=== PATIENT | male | born 1980 | race African-American/Black ===

== ENCOUNTER 2018-04-11 23:19 | Emergency (ER) | payer SELFPAY ==
[2018-04-12] MEDS ORDERED: Dexamethasone 4 mg/ml Vial ONE ×2 (01:00)
== END 2018-04-12 01:38 | disposition home or self-care (01) ==
LOC: ERS 23:19
DX: J02.9 Acute pharyngitis, unspecified (principal)
CPT/HCPCS: 87081; 87430; 99283; J1100

== ENCOUNTER 2020-08-22 13:28 | Emergency (ER) | payer BC, SELFPAY | END 2020-08-22 14:50 | disposition home or self-care (01) | LOC: ERS 13:28 | DX: K06.8 Other specified disorders of gingiva and edentulous alveolar ridge (principal) | CPT/HCPCS: 99282 ==

== ENCOUNTER 2020-09-12 21:23 | Emergency (ER) | payer BC, SELFPAY ==
--- NOTE | 2020-09-12 22:20 | RAD ---
Exam: XR Hand Rt 3 View STANDARD HISTORY: Right hand pain which started 3 days ago. No history of injury. COMPARISON: None FINDINGS: No acute fracture, dislocation, or other acute osseous abnormality is identified. IMPRESSION: No acute osseous abnormality is identified.
== END 2020-09-12 23:52 | disposition home or self-care (01) ==
LOC: ERS 21:23
DX: G56.01 Carpal tunnel syndrome, right upper limb (principal)

== ENCOUNTER 2020-09-18 20:19 | Emergency (ER) | payer BC | END 2020-09-18 21:01 | disposition home or self-care (01) | LOC: ERS 20:19 | DX: M79.641 Pain in right hand (principal) | CPT/HCPCS: 99283 ==

== ENCOUNTER 2020-09-26 09:22 | Emergency (ER) | payer BC | END 2020-09-26 12:30 | disposition home or self-care (01) | LOC: ERS 09:22 | DX: K64.8 Other hemorrhoids (principal); F17.210 Nicotine dependence, cigarettes, uncomplicated | CPT/HCPCS: 99283 ==

== ENCOUNTER 2020-10-12 02:08 | Emergency (ER) | payer BC ==
[2020-10-12] MEDS ORDERED: Metoclopramide HCl 10 MG TAB ONE (02:37)
== END 2020-10-12 02:40 | disposition home or self-care (01) ==
LOC: ERS 02:08
DX: G43.909 Migraine, unspecified, not intractable, without status migrainosus (principal); F17.210 Nicotine dependence, cigarettes, uncomplicated
CPT/HCPCS: 99281

== ENCOUNTER 2021-09-16 17:40 | Emergency (ER) | payer BC ==
[2021-09-16 23:12] LABS: SARS-CoV-2 PCR by NAA Not Detected (NotDetected)
== END 2021-09-16 18:17 | disposition home or self-care (01) ==
LOC: ERS 17:40
DX: R53.1 Weakness (principal); M79.10 Myalgia, unspecified site; R19.7 Diarrhea, unspecified; Z20.822 Contact with and (suspected) exposure to COVID-19
CPT/HCPCS: 99284; U0003; U0005

== ENCOUNTER 2021-09-25 13:12 | Emergency (ER) | payer BC | END 2021-09-25 13:58 | disposition home or self-care (01) | LOC: ERS 13:12 | DX: Z01.30 Encounter for examination of blood pressure without abnormal findings (principal); F17.210 Nicotine dependence, cigarettes, uncomplicated | CPT/HCPCS: 99281 ==

== ENCOUNTER 2022-02-10 14:19 | Emergency (ER) | payer BC, SELFPAY ==
[2022-02-10] MEDS ORDERED: Ibuprofen 800 MG TAB ONE (16:17)
== END 2022-02-10 16:30 | disposition home or self-care (01) ==
LOC: ERS 14:19
DX: M79.10 Myalgia, unspecified site (principal); R53.1 Weakness; R09.89 Other specified symptoms and signs involving the circulatory and respiratory systems; R63.0 Anorexia; R05.9 Cough, unspecified; R06.02 Shortness of breath; R19.7 Diarrhea, unspecified; R09.81 Nasal congestion; F17.210 Nicotine dependence, cigarettes, uncomplicated; Z20.822 Contact with and (suspected) exposure to COVID-19
CPT/HCPCS: 99283; U0003; U0005

== ENCOUNTER 2022-07-10 16:08 | Emergency (ER) | payer SELFPAY ==
[2022-07-10 16:46] LABS: Bacteria/HPF None Seen HPF (None Seen); Bilirubin Negative (Negative); Blood, Urine Trace (Negative); Clarity Clear (Clear); Glucose, Urine (Dipstick) Normal (Negative); Ketone, Urine Negative (Negative); Leukocyte Negative Leu/uL (Negative); Nitrite Negative (Negative); Protein, Urine (Dipstick) 30 mg/dL (Neg-Trace); RBC/HPF 0-3 HPF (0-3); Specific Gravity, Urine 1.034 (1.002-1.036); Squamous Epithelial 0-3 HPF (0-3); Urobilinogen 6 mg/dL (Less than 2); WBC/HPF 0-3 HPF (0-3); pH, Urine 6.5 (5.0-9.0)
[2022-07-10 17:13] LABS: SARS-CoV-2 NAA Rapid Test Not Detected (NotDetected)
== END 2022-07-10 17:57 | disposition home or self-care (01) ==
LOC: ERS 16:08
DX: J02.9 Acute pharyngitis, unspecified (principal); K64.9 Unspecified hemorrhoids; F17.210 Nicotine dependence, cigarettes, uncomplicated; Z20.822 Contact with and (suspected) exposure to COVID-19
CPT/HCPCS: 81003; 81015; 99283

== ENCOUNTER 2022-07-28 19:01 | Emergency (ER) | payer SELFPAY ==
[2022-07-28] MEDS ORDERED: Acetaminophen 500 MG TAB ONE (21:44)
[2022-07-28] MEDS ORDERED: Ibuprofen 800 MG TAB ONE (21:44)
[2022-07-28] MEDS ORDERED: Vancomycin 1 GM/200 ML (FROZEN) BAG ONE (21:44)
[2022-07-28] MEDS ORDERED: Piperacillin/Tazobactam 4.5 GM VIAL ONE (21:44)
[2022-07-28 21:59] LABS: #Lymphocytes 1.5 thou/uL (1.20-3.40); #Monocytes 0.5 thou/uL (0.11-0.59); #Neutrophils 2.5 thou/uL (1.40-6.50); %Basophils 0.2 % (0.0-1.0); %Lymphocytes 33.3 % (21.0-51.0); %Monocytes 10.2 % (0.0-10.0); %Neutrophils 55.3 % (42.0-75.0); Hemoglobin 13.7 g/dL (14.0-18.0); Mean Corpuscular HGB CONC 33.7 g/dL (32.0-36.0); Mean Corpuscular Hemoglobin 31.3 pg (27.0-31.0); Mean Corpuscular Volume 92.8 fl (78.0-98.0); Mean Platelet Volume 7.7 fL (7.4-10.4); Platelet Count 251 10x3/uL (130-400); RBC Distribution Width 12.3 % (11.5-14.5); Red Blood Cell (RBC) Count 4.36 mill/uL (4.70-6.10); White Blood Cell (WBC) Count 4.6 10x3/uL (4.8-10.8)
[2022-07-28 22:23] LABS: ALT (SGPT) 30 U/L (8-55); AST (SGOT) 26 U/L (5-34); Albumin 3.8 g/dL (3.5-5.0); Alkaline Phosphatase 126 U/L (40-110); Anion Gap 14 mmol/L (10-20); BUN (Urea Nitrogen) 7 mg/dL (8.9-20.6); Bilirubin, Total 0.5 mg/dL (0.2-1.2); Calc. Creatinine Clearance 0 mL/min (70-130); Calcium 8.8 mg/dL (7.8-10.44); Carbon Dioxide 23 mmol/L (22-29); Chloride 103 mmol/L (98-107); Estimated GFR 99; Globulin 3.1 g/dL (2.4-3.5); Glucose 97 mg/dL (70-105); Potassium 3.6 mmol/L (3.5-5.1); Protein, Total 6.9 g/dL (6.0-8.3); Sodium 136 mmol/L (136-145)
== END 2022-07-28 23:49 | disposition home or self-care (01) ==
LOC: ERS 19:01
DX: J10.1 Influenza due to other identified influenza virus with other respiratory manifestations (principal); Z20.822 Contact with and (suspected) exposure to COVID-19; F17.210 Nicotine dependence, cigarettes, uncomplicated
CPT/HCPCS: 71045; 80053; 83605; 85025; 87040; 87804; 93005; 96365; 96368; J2543; J3370-JW; U0003; U0005